=== PATIENT | male | born 1955 | race Caucasian/White ===

== ENCOUNTER 2017-12-23 13:38 | Emergency (ER) | payer MEDICARE ==
[~2017-12-23] VITALS: Ht 185.4 cm; Wt 118.6 kg
[~2017-12-23 13:38] MED LIST: DUO-KAPS1 CAP PO; FLOMAX 0.40.4 MG/CAP PO; GLUCOPHAGE500 MG/TAB PO; METFORMIN500 MG PO; NEURONTIN800 MG PO; OXYCODONE10 MG PO; OXYCONTIN 20MG20 MG PO
[2017-12-23 13:40] VITALS: TEMP 97.5
[2017-12-23 14:12] LABS: BASO # 0.1 (0.0-0.2); BASO % 0.7 % (0.0-2.0); EOS # 0.5 (0.0-0.7); EOS % 6.2 % (0-4.0); GRAN # 5.6 (1.4-6.5); GRAN % 64.4 % (42.2-75.2); HEMATOCRIT 38.3 % (42.0-52.0); HEMOGLOBIN 12.6 g/dl (13.5-18.0); LYMPH % 23.3 % (20.0-51.0); MEAN CELL VOLUME 84 fl (80.0-100.0); MEAN CORPUSCULAR HEMOGLOBIN 28 pg (27.0-31.0); MEAN CORPUSCULAR HGB CONC 33 g/dl (33.0-37.0); MONO # 0.4 (0.1-0.6); MONO % 4.9 % (1.7-9.3); PLATELET COUNT 212 K/mm3 (130-400); RED BLOOD COUNT 4.55 M/mm3 (4.20-5.60)
[2017-12-23] MEDS ORDERED: VASOTEC 5MG5 MG/TAB PO (14:20)
[2017-12-23] MEDS ORDERED: MEVACOR 20M20 MG/TAB PO (14:21)
[2017-12-23] MEDS ORDERED: K-DUR 10 MEQ T10 MEQ PO (14:21)
[2017-12-23] MEDS ORDERED: LASIX 40MG TABL40 MG PO (14:22)
[2017-12-23] MEDS ORDERED: ASPIRIN 81M81 MG/TA2 PO (14:22)
[2017-12-23] MEDS ORDERED: TOPROL XL 25MG25 MG PO (14:22)
[2017-12-23 14:26] LABS: ALBUMIN 3.9 gm/dL (3.5-5.0); BILIRUBIN,TOTAL 0.6 mg/dL (0.0-1.0); C-REACTIVE PROTEIN 1.6 mg/dL (0.0-0.9); CALCIUM 9.2 mg/dL (8.4-10.2); CREATININE, serum 0.82 mg/dL (0.66-1.25); POTASSIUM 3.8 mmol/L (3.4-5.0); TOTAL PROTEIN 8.2 gm/dL (6.4-8.2)
[2017-12-23 14:47] LABS: ERYTHROCYTE SEDIMENTATION RATE 16 mm/hr (0-30)
[2017-12-23 17:04] VITALS: BP 101/65; PULSE 73
== END 2017-12-23 17:06 | disposition home or self-care (01) ==
LOC: COL.ER 13:38
PROVIDERS: Emergency Medicine
DX: E11.621 Type 2 diabetes mellitus with foot ulcer (principal); Z79.84 Long term (current) use of oral hypoglycemic drugs; Z79.82 Long term (current) use of aspirin

== ENCOUNTER 2017-12-24 07:13 | Outpatient (RCR) | payer MEDICARE ==
[2017-12-24 07:37] VITALS: BP 114/60; PULSE 79; TEMP 98
== END 2017-12-24 08:49 | disposition home or self-care (01) ==
LOC: EUO 07:13
DX: S91.302A Unspecified open wound, left foot, initial encounter (principal)

== ENCOUNTER → 2017-12-24 | Outpatient (CLI) | payer MEDICARE ==
[~2017-12-24] MED LIST changes: +ASPIRIN 81M81 MG/TA2 PO; +K-DUR 10 MEQ T10 MEQ PO; +LASIX 40MG TABL40 MG PO; +MEVACOR 20M20 MG/TAB PO; +TOPROL XL 25MG25 MG PO; +VASOTEC 5MG5 MG/TAB PO
== END ==
LOC: ZCOL.LAB 14:09
DX: E11.621 Type 2 diabetes mellitus with foot ulcer (principal); L97.529 Non-pressure chronic ulcer of other part of left foot with unspecified severity

== ENCOUNTER → 2018-01-11 | Outpatient (CLI) | payer MEDICARE ==
[2018-01-11 16:37] LABS: TRICYCLIC ANTIDEPRESS URINE NEGATIVE
== END ==
LOC: COL.LAB 14:26
PROVIDERS: Family Medicine
DX: G89.29 Other chronic pain (principal); Z51.81 Encounter for therapeutic drug level monitoring

== ENCOUNTER 2018-02-07 18:53 | Emergency (ER) | payer MEDICARE ==
[~2018-02-07] VITALS: Ht 185.4 cm; Wt 118.2 kg
[2018-02-07 19:07] VITALS: TEMP 98.5
[2018-02-07 20:20] LABS: BASO % 0.4 % (0.0-2.0); EOS # 0.1 (0.0-0.7); EOS % 0.9 % (0-4.0); GRAN # 6.4 (1.4-6.5); GRAN % 69.6 % (42.2-75.2); HEMATOCRIT 37.9 % (42.0-52.0); HEMOGLOBIN 12.7 g/dl (13.5-18.0); LYMPH # 2.1 (1.2-3.4); LYMPH % 22.9 % (20.0-51.0); MEAN CELL VOLUME 82 fl (80.0-100.0); MEAN CORPUSCULAR HEMOGLOBIN 27 pg (27.0-31.0); MEAN CORPUSCULAR HGB CONC 34 g/dl (33.0-37.0); MEAN PLATELET VOLUME 10.4 fl (7.4-10.4); MONO # 0.5 (0.1-0.6); MONO % 5.8 % (1.7-9.3); PLATELET COUNT 232 K/mm3 (130-400); RED BLOOD COUNT 4.64 M/mm3 (4.20-5.60); REDCELL DISTRIBUTION WIDTH-CV 13.9 % (11.5-14.5)
[2018-02-07 20:38] LABS: ALANINE AMINOTRANSFERASE 22 U/L (21-72); ALBUMIN 4.3 gm/dL (3.5-5.0); ALKALINE PHOSPHATASE 71 U/L (50-136); ANION GAP 12 mmol/L (7-16); AST,SGOT 22 U/L (15-37); BILIRUBIN,TOTAL 0.5 mg/dL (0.0-1.0); BLOOD UREA NITROGEN 22 mg/dL (9-20); C-REACTIVE PROTEIN 2.9 mg/dL (0.0-0.9); CALCIUM 9.5 mg/dL (8.4-10.2); CARBON DIOXIDE 26 mmol/L (22-30); CHLORIDE 99 mmol/L (98-107); CREATININE, serum 0.99 mg/dL (0.66-1.25); GLUCOSE 160 mg/dL (74-106); LIPASE 73 U/L (23-300); POTASSIUM 4.1 mmol/L (3.4-5.0); SODIUM 137 mmol/L (137-145); TOTAL PROTEIN 8.2 gm/dL (6.4-8.2)
[2018-02-07 20:49] LABS: TROPONIN-I < 0.012 ng/mL (0.000-0.034)
[2018-02-07] MEDS ORDERED: ZITHROMAX 250M250 MG PO (22:11)
[2018-02-07 23:20] VITALS: BP 111/79; PULSE 102
== END 2018-02-07 23:25 | disposition home or self-care (01) ==
LOC: COL.ER 18:53
PROVIDERS: Emergency Medicine
DX: R07.89 Other chest pain (principal); J40 Bronchitis, not specified as acute or chronic; I10 Essential (primary) hypertension; E78.5 Hyperlipidemia, unspecified; E11.9 Type 2 diabetes mellitus without complications; I25.10 Atherosclerotic heart disease of native coronary artery without angina pectoris; Z98.890 Other specified postprocedural states; Z79.84 Long term (current) use of oral hypoglycemic drugs
CPT/HCPCS: J7030

== ENCOUNTER → 2018-03-02 | Outpatient (CLI) | payer MEDICARE ==
[~2018-03-02] MED LIST changes: +ZITHROMAX 250M250 MG PO
[2018-03-02 15:51] LABS: BASO # 0.1 (0.0-0.2); BASO % 0.7 % (0.0-2.0); EOS # 0.3 (0.0-0.7); EOS % 3.1 % (0-4.0); GRAN # 5.6 (1.4-6.5); GRAN % 62.9 % (42.2-75.2); HEMATOCRIT 40.5 % (42.0-52.0); HEMOGLOBIN 13.3 g/dl (13.5-18.0); LYMPH # 2.4 (1.2-3.4); LYMPH % 27.4 % (20.0-51.0); MEAN CELL VOLUME 85 fl (80.0-100.0); MEAN CORPUSCULAR HEMOGLOBIN 28 pg (27.0-31.0); MEAN CORPUSCULAR HGB CONC 33 g/dl (33.0-37.0); MONO # 0.5 (0.1-0.6); MONO % 5.6 % (1.7-9.3); PLATELET COUNT 255 K/mm3 (130-400); RED BLOOD COUNT 4.76 M/mm3 (4.20-5.60); REDCELL DISTRIBUTION WIDTH-CV 13.9 % (11.5-14.5)
[2018-03-02 16:00] LABS: ALBUMIN 4.3 gm/dL (3.5-5.0); BILIRUBIN,TOTAL 0.4 mg/dL (0.0-1.0); CALCIUM 9.4 mg/dL (8.4-10.2); CHOLESTEROL RISK RATIO 5.9; CREATININE, serum 0.81 mg/dL (0.66-1.25); POTASSIUM 4.7 mmol/L (3.4-5.0); TOTAL PROTEIN 8.6 gm/dL (6.4-8.2)
[2018-03-02 16:15] LABS: URINE PROTEIN:CREAT RATIO 0.2 (0.00-0.14)
[2018-03-02 16:30] LABS: TSH w REFLEX 1.17 uIU/mL (0.465-4.680)
== END ==
LOC: COL.LAB 13:42
PROVIDERS: Family Medicine
DX: I10 Essential (primary) hypertension (principal); E11.9 Type 2 diabetes mellitus without complications; E78.5 Hyperlipidemia, unspecified

== ENCOUNTER → 2018-03-03 | Outpatient (CLI) | payer MEDICARE | LOC: MHCPAIN 12:46 | DX: G89.29 Other chronic pain (principal); M79.1 Myalgia; M79.2 Neuralgia and neuritis, unspecified | CPT/HCPCS: G0463 ==

== ENCOUNTER → 2018-03-16 | Outpatient (CLI) | payer MEDICARE | LOC: COL.LAB 14:37 | DX: G62.9 Polyneuropathy, unspecified (principal) ==

== ENCOUNTER → 2018-03-31 | Outpatient (CLI) | payer MEDICARE | LOC: MHCPAIN 12:54 | DX: G89.29 Other chronic pain (principal); M79.2 Neuralgia and neuritis, unspecified; M79.1 Myalgia | CPT/HCPCS: G0463 ==

== ENCOUNTER 2018-04-29 16:16 | Emergency (ER) | payer MEDICARE ==
[~2018-04-29] VITALS: Ht 185.4 cm; Wt 119.1 kg
[2018-04-29 16:17] VITALS: BP 168/72; TEMP 97.7
[2018-04-29] MEDS ORDERED: ASPIRIN 32325 MG/TAB PO (16:30)
[2018-04-29] MEDS ORDERED: CLEOCIN HCL300 MG PO (17:16)
[2018-04-29 17:40] VITALS: PULSE 80
== END 2018-04-29 17:45 | disposition home or self-care (01) ==
LOC: COL.ER 16:16
DX: K02.9 Dental caries, unspecified (principal); E11.40 Type 2 diabetes mellitus with diabetic neuropathy, unspecified; Z79.84 Long term (current) use of oral hypoglycemic drugs; Z87.891 Personal history of nicotine dependence; Z95.1 Presence of aortocoronary bypass graft; Z90.89 Acquired absence of other organs
CPT/HCPCS: J1885

== ENCOUNTER → 2018-05-10 | Outpatient (CLI) | payer MEDICARE ==
[~2018-05-10] MED LIST changes: +ASPIRIN 32325 MG/TAB PO; +CLEOCIN HCL300 MG PO
[2018-05-10 14:52] LABS: BASO # 0.1 (0.0-0.2); BASO % 0.5 % (0.0-2.0); EOS # 0.2 (0.0-0.7); EOS % 1.6 % (0-4.0); GRAN # 6.3 (1.4-6.5); GRAN % 65.6 % (42.2-75.2); HEMATOCRIT 38.6 % (42.0-52.0); HEMOGLOBIN 12.8 g/dl (13.5-18.0); LYMPH # 2.5 (1.2-3.4); LYMPH % 25.9 % (20.0-51.0); MEAN CELL VOLUME 85 fl (80.0-100.0); MEAN CORPUSCULAR HEMOGLOBIN 28 pg (27.0-31.0); MEAN CORPUSCULAR HGB CONC 33 g/dl (33.0-37.0); MEAN PLATELET VOLUME 10.1 fl (7.4-10.4); MONO # 0.6 (0.1-0.6); MONO % 6.1 % (1.7-9.3); PLATELET COUNT 248 K/mm3 (130-400); RED BLOOD COUNT 4.55 M/mm3 (4.20-5.60); REDCELL DISTRIBUTION WIDTH-CV 13.7 % (11.5-14.5)
[2018-05-10 15:03] LABS: CALCIUM 9.6 mg/dL (8.4-10.2); CREATININE, serum 0.83 mg/dL (0.66-1.25); POTASSIUM 4.7 mmol/L (3.4-5.0)
== END ==
LOC: COL.LAB 14:26
PROVIDERS: Family Medicine
DX: Z01.812 Encounter for preprocedural laboratory examination (principal); I25.10 Atherosclerotic heart disease of native coronary artery without angina pectoris; K02.9 Dental caries, unspecified; E11.9 Type 2 diabetes mellitus without complications

== ENCOUNTER → 2018-06-23 | Outpatient (CLI) | payer MEDICARE | LOC: MHCPAIN 12:59 | DX: G89.29 Other chronic pain (principal); M79.2 Neuralgia and neuritis, unspecified | CPT/HCPCS: G0463 ==

== ENCOUNTER 2018-07-02 08:38 | Inpatient (IN) | payer MEDICARE ==
[~2018-07-02] VITALS: Ht 185.4 cm; Wt 117.9 kg
[~2018-07-02 08:38] MED LIST changes: -NEURONTIN800 MG PO; +NEURONTIN800 MG/TAB PO
[2018-07-07] VITALS (10 sets, daily range): BP systolic 91–129; BP diastolic 48–77; PULSE 64–89; TEMP 97.2–98.6
[2018-07-07] MEDS ORDERED: CLEOCIN HCL300 MG PO (07:42)
[2018-07-07] MEDS ORDERED: DAZIDOX10 MG PO (07:46)
[2018-07-07] MEDS ORDERED: DECADRON OPHTH D5 ML OT (07:48)
[2018-07-07] MEDS ORDERED: ATHLETE'S FOOT1% OT (07:50)
[2018-07-08 00:29] VITALS: BP 125/53; PULSE 75; TEMP 98.6
[2018-07-08 05:21] VITALS: BP 134/75; PULSE 87; TEMP 97.4
[2018-07-08 09:00] VITALS: BP 131/57; PULSE 92; TEMP 97.7
[2018-07-08 10:08] VITALS: BP 116/52; BP 131/57; PULSE 87; PULSE 92; TEMP 97.7; TEMP 97.8
[2018-07-08 12:56] VITALS: BP 109/54; PULSE 79; TEMP 97.7
== END 2018-07-08 16:10 | disposition home or self-care (01) | DRG 476 ==
LOC: SURG 07-07 06:42 → JCC 07-07 06:42 → SURG 07-07 11:00 → JCC 07-08 16:10
PROVIDERS: Orthopaedic Surgery
PROC: 0Y6N0ZF Detachment at Left Foot, Partial 5th Ray, Open Approach (ICD-10-PCS; principal; 2018-07-07 11:00)
DX: M86.8X7 Other osteomyelitis, ankle and foot (principal); I10 Essential (primary) hypertension; Z95.1 Presence of aortocoronary bypass graft; E11.40 Type 2 diabetes mellitus with diabetic neuropathy, unspecified; Z87.891 Personal history of nicotine dependence
CPT/HCPCS: J0690; J1650; J2250; J2270; J2405; J2704; J3010; J7030

== ENCOUNTER → 2018-08-23 | Outpatient (CLI) | payer MEDICARE ==
[~2018-08-23] MED LIST changes: +ATHLETE'S FOOT1% OT; +DAZIDOX10 MG PO; +DECADRON OPHTH D5 ML OT
== END ==
LOC: ZCOL.LAB 14:21
DX: E11.621 Type 2 diabetes mellitus with foot ulcer (principal)

== ENCOUNTER 2018-09-21 01:05 | Emergency (ER) | payer MEDICARE ==
[2018-09-21 01:08] VITALS: TEMP 98.1
[2018-09-21 01:38] LABS: BASO % 0.4 % (0.0-2.0); EOS % 0.3 % (0-4.0); GRAN # 7.9 (1.4-6.5); GRAN % 79.3 % (42.2-75.2); LYMPH # 1.1 (1.2-3.4); LYMPH % 10.7 % (20.0-51.0); MEAN CELL VOLUME 78 fl (80.0-100.0); MEAN CORPUSCULAR HGB CONC 31 g/dl (33.0-37.0); MONO # 0.9 (0.1-0.6); MONO % 8.9 % (1.7-9.3); PLATELET COUNT 322 K/mm3 (130-400); RED BLOOD COUNT 3.38 M/mm3 (4.20-5.60)
[2018-09-21 01:40] LABS: HEMATOCRIT 26.3 % (42.0-52.0); HEMOGLOBIN 8.2 g/dl (13.5-18.0); MEAN CORPUSCULAR HEMOGLOBIN 24 pg (27.0-31.0)
[2018-09-21 01:52] LABS: ALBUMIN 3.4 gm/dL (3.5-5.0); BILIRUBIN,TOTAL 0.6 mg/dL (0.0-1.0); CALCIUM 8.8 mg/dL (8.4-10.2); CREATININE, serum 0.72 mg/dL (0.66-1.25); POTASSIUM 4.1 mmol/L (3.4-5.0); TOTAL PROTEIN 7.9 gm/dL (6.4-8.2)
[2018-09-21 02:02] LABS: C-REACTIVE PROTEIN 21.2 mg/dL (0.0-0.9)
[2018-09-21 04:15] VITALS: BP 105/45; PULSE 106
== END 2018-09-21 04:15 | disposition short-term general hospital (02) ==
LOC: COL.ER 01:05
PROVIDERS: Emergency Medicine
DX: M86.9 Osteomyelitis, unspecified (principal); L03.116 Cellulitis of left lower limb; Z79.84 Long term (current) use of oral hypoglycemic drugs; Z79.82 Long term (current) use of aspirin
CPT/HCPCS: J2270; J3370; J7050

== ENCOUNTER → 2018-10-06 | Outpatient (CLI) | payer MEDICARE | LOC: ZCOL.LAB 21:50 | DX: J11.1 Influenza due to unidentified influenza virus with other respiratory manifestations (principal) ==

== ENCOUNTER → 2018-10-20 | Outpatient (CLI) | payer MEDICARE | LOC: MHCPAIN 13:02 | DX: G89.29 Other chronic pain (principal); M79.2 Neuralgia and neuritis, unspecified | CPT/HCPCS: G0463 ==

== ENCOUNTER 2018-12-15 12:01 | Emergency (ER) | payer MEDICARE ==
[~2018-12-15] VITALS: Ht 185.4 cm; Wt 118.2 kg
[2018-12-15 12:04] VITALS: TEMP 97.7
[2018-12-15 13:27] VITALS: PULSE 76
== END 2018-12-15 13:28 | disposition home or self-care (01) ==
LOC: COL.ER 12:01
DX: S89.92XA Unspecified injury of left lower leg, initial encounter (principal); I25.10 Atherosclerotic heart disease of native coronary artery without angina pectoris; E11.9 Type 2 diabetes mellitus without complications; Z95.1 Presence of aortocoronary bypass graft; Z87.891 Personal history of nicotine dependence; Z90.49 Acquired absence of other specified parts of digestive tract; Z79.84 Long term (current) use of oral hypoglycemic drugs; Z79.82 Long term (current) use of aspirin; W19.XXXA Unspecified fall, initial encounter

== ENCOUNTER → 2019-01-18 | Outpatient (CLI) | payer MEDICARE | LOC: MHCPAIN 12:44 | DX: G89.29 Other chronic pain (principal); M79.2 Neuralgia and neuritis, unspecified | CPT/HCPCS: G0463 ==

== ENCOUNTER → 2019-04-05 | Outpatient (CLI) | payer MEDICARE | LOC: MHCPAIN 12:49 | DX: G89.29 Other chronic pain (principal); M79.2 Neuralgia and neuritis, unspecified | CPT/HCPCS: G0463 ==

== ENCOUNTER → 2019-06-21 | Outpatient (CLI) | payer MEDICARE ==
[~2019-06-21] MED LIST changes: +ALBUTEROL0.83 MG/ML IH; +AMOXICILLIN875 MG PO; +LEVAQUIN 750MG750 M1 PO; +NEB MC; +NORCO 325 MG-51 TAB PO; +PREDNISONE20 MG PO
== END ==
LOC: MHCPAIN 12:57
DX: M79.2 Neuralgia and neuritis, unspecified (principal)
CPT/HCPCS: G0463

== ENCOUNTER 2019-07-04 10:40 | Emergency (ER) | payer MEDICARE ==
[~2019-07-04] VITALS: Ht 185.4 cm; Wt 122.7 kg
[~2019-07-04 10:40] MED LIST changes: -ALBUTEROL0.83 MG/ML IH; -AMOXICILLIN875 MG PO; -LEVAQUIN 750MG750 M1 PO; -NEB MC; -NORCO 325 MG-51 TAB PO; -PREDNISONE20 MG PO
[2019-07-04 11:06] VITALS: BP 154/73; TEMP 97.8
[2019-07-04] MEDS ORDERED: AMOXICILLIN875 MG PO (13:15)
[2019-07-04] MEDS ORDERED: NORCO 325 MG-51 TAB PO (13:15)
[2019-07-04 13:43] VITALS: PULSE 79
== END 2019-07-04 13:45 | disposition home or self-care (01) ==
LOC: COL.ER 10:40
DX: K02.9 Dental caries, unspecified (principal); K04.7 Periapical abscess without sinus; E11.40 Type 2 diabetes mellitus with diabetic neuropathy, unspecified; I10 Essential (primary) hypertension; Z87.891 Personal history of nicotine dependence; Z79.84 Long term (current) use of oral hypoglycemic drugs; Z79.82 Long term (current) use of aspirin
CPT/HCPCS: J1885

== ENCOUNTER 2019-08-21 21:27 | Emergency (ER) | payer MEDICARE ==
[~2019-08-21] VITALS: Ht 185.4 cm; Wt 122.7 kg
[~2019-08-21 21:27] MED LIST changes: +AMOXICILLIN875 MG PO; +NORCO 325 MG-51 TAB PO
[2019-08-21 23:46] LABS: BASO # 0.1 (0.0-0.2); BASO % 0.7 % (0.0-2.0); EOS # 0.3 (0.0-0.7); EOS % 3.8 % (0-4.0); GRAN # 2.9 (1.4-6.5); GRAN % 40.7 % (42.2-75.2); HEMATOCRIT 38.7 % (42.0-52.0); HEMOGLOBIN 12.9 g/dl (13.5-18.0); LYMPH % 41.8 % (20.0-51.0); MEAN CELL VOLUME 85 fl (80.0-100.0); MEAN CORPUSCULAR HEMOGLOBIN 28 pg (27.0-31.0); MEAN CORPUSCULAR HGB CONC 33 g/dl (33.0-37.0); MEAN PLATELET VOLUME 9.7 fl (7.4-10.4); MONO # 0.9 (0.1-0.6); MONO % 12.7 % (1.7-9.3); PLATELET COUNT 179 K/mm3 (130-400); RED BLOOD COUNT 4.55 M/mm3 (4.20-5.60); REDCELL DISTRIBUTION WIDTH-CV 13.7 % (11.5-14.5)
[2019-08-21 23:55] LABS: ALANINE AMINOTRANSFERASE 13 U/L (21-72); ALBUMIN 4.2 gm/dL (3.5-5.0); ALKALINE PHOSPHATASE 61 U/L (50-136); ANION GAP 7 mmol/L (7-16); AST,SGOT 21 U/L (15-37); BILIRUBIN,TOTAL 0.5 mg/dL (0.0-1.0); BLOOD UREA NITROGEN 15 mg/dL (9-20); CALCIUM 9.4 mg/dL (8.4-10.2); CARBON DIOXIDE 28 mmol/L (22-30); CHLORIDE 104 mmol/L (98-107); CREATININE, serum 0.72 (0.66-1.25); GLUCOSE 131 mg/dL (74-106); POTASSIUM 4.5 mmol/L (3.4-5.0); SODIUM 139 mmol/L (137-145)
[2019-08-22 00:09] LABS: TROPONIN-I < 0.012 ng/mL (0.000-0.035)
[2019-08-22] MEDS ORDERED: LEVAQUIN 750MG750 M1 PO (00:23)
[2019-08-22 00:30] VITALS: BP 123/58; PULSE 70; TEMP 97.7
== END 2019-08-22 00:36 | disposition home or self-care (01) ==
LOC: COL.ER 21:27
PROVIDERS: Emergency Medicine
DX: J18.9 Pneumonia, unspecified organism (principal); E11.40 Type 2 diabetes mellitus with diabetic neuropathy, unspecified; I10 Essential (primary) hypertension; I25.10 Atherosclerotic heart disease of native coronary artery without angina pectoris; Z87.891 Personal history of nicotine dependence; Z95.1 Presence of aortocoronary bypass graft; Z79.84 Long term (current) use of oral hypoglycemic drugs; Z79.82 Long term (current) use of aspirin

== ENCOUNTER 2019-08-26 15:10 | Emergency (ER) | payer MEDICARE ==
[~2019-08-26] VITALS: Ht 185.4 cm; Wt 122.7 kg
[~2019-08-26 15:10] MED LIST changes: +LEVAQUIN 750MG750 M1 PO
[2019-08-26 15:27] VITALS: TEMP 97.6
[2019-08-26 17:00] LABS: BASO # 0.1 (0.0-0.2); BASO % 0.6 % (0.0-2.0); EOS # 0.2 (0.0-0.7); EOS % 1.2 % (0-4.0); GRAN # 7.8 (1.4-6.5); GRAN % 63.6 % (42.2-75.2); HEMATOCRIT 41.6 % (42.0-52.0); HEMOGLOBIN 14.2 g/dl (13.5-18.0); LYMPH # 3.5 (1.2-3.4); LYMPH % 28.8 % (20.0-51.0); MEAN CELL VOLUME 83 fl (80.0-100.0); MEAN CORPUSCULAR HEMOGLOBIN 29 pg (27.0-31.0); MEAN CORPUSCULAR HGB CONC 34 g/dl (33.0-37.0); MEAN PLATELET VOLUME 9.9 fl (7.4-10.4); MONO # 0.6 (0.1-0.6); MONO % 5.3 % (1.7-9.3); PLATELET COUNT 245 K/mm3 (130-400); RED BLOOD COUNT 4.99 M/mm3 (4.20-5.60); REDCELL DISTRIBUTION WIDTH-CV 13.8 % (11.5-14.5)
[2019-08-26 17:30] LABS: ALBUMIN 4.6 gm/dL (3.5-5.0); BILIRUBIN,TOTAL 0.6 mg/dL (0.0-1.0); C-REACTIVE PROTEIN 0.6 mg/dL (0.0-0.9); CALCIUM 9.7 mg/dL (8.4-10.2); CREATININE, serum 0.7 (0.66-1.25); POTASSIUM 4.4 mmol/L (3.4-5.0); TOTAL PROTEIN 8.8 gm/dL (6.4-8.2)
[2019-08-26] MEDS ORDERED: NEB MC (18:12)
[2019-08-26] MEDS ORDERED: ALBUTEROL0.83 MG/ML IH (18:12)
[2019-08-26] MEDS ORDERED: PREDNISONE20 MG PO (18:15)
[2019-08-26 18:48] VITALS: BP 136/84; PULSE 93
== END 2019-08-26 18:58 | disposition home or self-care (01) ==
LOC: COL.ER 15:10
PROVIDERS: Physician Assistant
DX: J18.9 Pneumonia, unspecified organism (principal); J06.9 Acute upper respiratory infection, unspecified; J45.909 Unspecified asthma, uncomplicated; E11.9 Type 2 diabetes mellitus without complications; Z79.84 Long term (current) use of oral hypoglycemic drugs; Z79.82 Long term (current) use of aspirin; Z88.1 Allergy status to other antibiotic agents; Z88.8 Allergy status to other drugs, medicaments and biological substances
CPT/HCPCS: J7030

== ENCOUNTER → 2019-12-28 | Outpatient (CLI) | payer MEDICARE, OTHER ==
[~2019-12-28] MED LIST changes: +ALBUTEROL0.83 MG/ML IH; +NEB MC; +PREDNISONE20 MG PO
== END ==
LOC: MHCPAIN 13:20
DX: M79.2 Neuralgia and neuritis, unspecified (principal); G89.29 Other chronic pain
CPT/HCPCS: G0463

== ENCOUNTER 2019-12-31 23:20 | Emergency (ER) | payer MEDICARE, OTHER ==
[~2019-12-31] VITALS: Ht 182.9 cm; Wt 121.4 kg
[2019-12-31 23:28] VITALS: BP 167/98
[2019-12-31] MEDS ORDERED: AMOXICILLIN 50500 MG PO (23:55)
[2020-01-01 00:13] VITALS: PULSE 68; TEMP 98
== END 2020-01-01 00:10 | disposition home or self-care (01) ==
LOC: COL.ER 23:20
DX: K02.9 Dental caries, unspecified (principal); E11.42 Type 2 diabetes mellitus with diabetic polyneuropathy; Z87.891 Personal history of nicotine dependence; Z79.82 Long term (current) use of aspirin; Z79.84 Long term (current) use of oral hypoglycemic drugs

== ENCOUNTER → 2020-03-28 | Outpatient (CLI) | payer MEDICARE, OTHER ==
[~2020-03-28] MED LIST changes: +AMOXICILLIN 50500 MG PO
== END ==
LOC: MHCPAIN 11:06
DX: M79.2 Neuralgia and neuritis, unspecified (principal); E11.40 Type 2 diabetes mellitus with diabetic neuropathy, unspecified; M79.604 Pain in right leg; M79.605 Pain in left leg; G89.29 Other chronic pain
CPT/HCPCS: G0463

== ENCOUNTER 2020-04-09 13:00 | Outpatient (RCR) | payer MEDICARE, OTHER | END 2020-04-09 15:00 | disposition home or self-care (01) | LOC: MKS.ESL.PT 13:00 | DX: S88.912S Complete traumatic amputation of left lower leg, level unspecified, sequela (principal) ==

== ENCOUNTER 2020-04-18 10:00 | Day surgery (SDC) | payer MEDICARE, OTHER ==
[2020-04-18] VITALS (9 sets, daily range): BP systolic 121–147; BP diastolic 70–92; PULSE 69–77; TEMP 97.6
[~2020-04-18] VITALS: Ht 183 cm; Wt 122.0 kg
[2020-04-18] MEDS ORDERED: VOSOL 15 ML15 M1 OT (10:56)
[2020-04-18 11:10] LABS: HEMATOCRIT 42.4 % (42.0-52.0); HEMOGLOBIN 14.4 g/dl (13.5-18.0); MEAN CELL VOLUME 86 fl (80.0-100.0); MEAN CORPUSCULAR HEMOGLOBIN 29 pg (27.0-31.0); MEAN CORPUSCULAR HGB CONC 34 g/dl (33.0-37.0); MEAN PLATELET VOLUME 10.3 fl (7.4-10.4); PLATELET COUNT 230 K/mm3 (130-400); RED BLOOD COUNT 4.92 M/mm3 (4.20-5.60); REDCELL DISTRIBUTION WIDTH-CV 13.8 % (11.5-14.5)
[2020-04-18 11:13] LABS: PROTHROMBIN TIME 10.6 SECONDS (9.7-12.8)
[2020-04-18 11:16] LABS: PARTIAL THROMBOPLASTIN TIME 31.6 SECONDS (26.0-37.0)
[2020-04-18 11:24] LABS: CALCIUM 9.4 mg/dL (8.4-10.2); CREATININE, serum 0.86 (0.66-1.25); POTASSIUM 4.3 mmol/L (3.4-5.0)
--- NOTE | 2020-04-18 12:24 | NUR ---
SEE MERGE DOCUMENTATION FOR MEDICATION ADMINISRATION TIMES AND INTRA/POST PROCEDURE SEDATION ASSESSMENTS. PLAN FOR LEFT RADIAL ACCESS, LEFT HAND BARBEAU TEST POSITIVE.
--- NOTE | 2020-04-18 13:40 | NUR ---
PT TO EU 10 VIA BED FROM [facility] LEAD PSYCHOLOGIST. PT IS AWAKE AND ALERT. CALL LIGHT IN REACH, PT ON TELEMETRY. STATES IS HUNGRY AND THIRSTY, NO OTHER C/O
--- NOTE | 2020-04-18 14:25 | NUR ---
PT SITS UP IN BED, DAUGHTER HERE. EATS LUNCH, NO C/O
--- NOTE | 2020-04-18 15:40 | NUR ---
TR BAND RELEASED BY 2CC EVERY 3-5 MIN, NO BLEEDING OR SWELLING NOTED, BAND REMOVED WITH BANDAID/COBAN PLACED. PT SITS ON SIDE OF BED, NO C/O. IV D'CD INTACT. REVIEWED DISCHARGE INST. WITH PT ON ACTIVITY, CARE OF SITE, LIFTING RESTRICTIONS WITH VERBAL UNDERSTANDING. PT HAS FOLLOWUP APPT. AND INSTRUCTED NOT TO TAKE METFORMIN FOR 48 HRS WRITTEN.
--- NOTE | 2020-04-18 16:16 | NUR ---
PT DISCHARGED VIA W/C TO CAR WITH DAUGHTER
== END 2020-04-18 16:24 | disposition home or self-care (01) ==
LOC: COL.CAR 10:00
PROVIDERS: Internal Medicine Cardiovascular Disease
DX: I25.10 Atherosclerotic heart disease of native coronary artery without angina pectoris (principal); I25.2 Old myocardial infarction; R06.02 Shortness of breath; I10 Essential (primary) hypertension; E11.42 Type 2 diabetes mellitus with diabetic polyneuropathy; G47.33 Obstructive sleep apnea (adult) (pediatric); E78.5 Hyperlipidemia, unspecified; I73.9 Peripheral vascular disease, unspecified; K21.9 Gastro-esophageal reflux disease without esophagitis; N40.0 Benign prostatic hyperplasia without lower urinary tract symptoms; I45.10 Unspecified right bundle-branch block; G89.29 Other chronic pain; J45.909 Unspecified asthma, uncomplicated; L71.9 Rosacea, unspecified; E66.9 Obesity, unspecified; Z68.37 Body mass index [BMI] 37.0-37.9, adult; Z86.19 Personal history of other infectious and parasitic diseases; Z95.1 Presence of aortocoronary bypass graft; Z79.84 Long term (current) use of oral hypoglycemic drugs; Z89.512 Acquired absence of left leg below knee; Z88.8 Allergy status to other drugs, medicaments and biological substances
CPT/HCPCS: J1644; J2250; J3010

== ENCOUNTER 2020-07-01 22:22 | Emergency (ER) | payer MEDICARE, OTHER ==
[~2020-07-01] VITALS: Ht 185.4 cm; Wt 122.7 kg
[~2020-07-01 22:22] MED LIST changes: +VOSOL 15 ML15 M1 OT
[2020-07-01 22:58] VITALS: BP 135/76; PULSE 78
== END 2020-07-01 22:58 | disposition home or self-care (01) ==
LOC: COL.ER 22:22
DX: Z48.89 Encounter for other specified surgical aftercare (principal)

== ENCOUNTER 2020-08-03 11:38 | Emergency (ER) | payer MEDICARE, OTHER ==
[~2020-08-03] VITALS: Ht 185.4 cm; Wt 121.8 kg
[2020-08-03 11:44] VITALS: TEMP 97.5
[2020-08-03] MEDS ORDERED: MOBIC15 MG PO (14:26)
[2020-08-03] MEDS ORDERED: ZANAFLEX 4MG TAB4 MG PO (14:26)
[2020-08-03] MEDS ORDERED: PERCOCET 325 MG1 TA2 PO (14:26)
[2020-08-03 14:40] VITALS: BP 136/83; PULSE 84
== END 2020-08-03 14:40 | disposition home or self-care (01) ==
LOC: COL.ER 11:38
DX: M48.02 Spinal stenosis, cervical region (principal); M47.812 Spondylosis without myelopathy or radiculopathy, cervical region; I10 Essential (primary) hypertension; E11.9 Type 2 diabetes mellitus without complications; Z95.9 Presence of cardiac and vascular implant and graft, unspecified; Z88.1 Allergy status to other antibiotic agents; Z87.891 Personal history of nicotine dependence; Z79.82 Long term (current) use of aspirin; Z79.84 Long term (current) use of oral hypoglycemic drugs

== ENCOUNTER 2020-08-11 09:18 | Emergency (ER) | payer MEDICARE, OTHER ==
[~2020-08-11] VITALS: Ht 185.4 cm; Wt 76.4 kg
[~2020-08-11 09:18] MED LIST changes: +MOBIC15 MG PO; +PERCOCET 325 MG1 TA2 PO; +ZANAFLEX 4MG TAB4 MG PO
[2020-08-11 09:24] VITALS: TEMP 97.3
[2020-08-11 10:04] LABS: BASO % 0.6 % (0.0-2.0); EOS # 0.2 (0.0-0.7); EOS % 2.9 % (0-4.0); GRAN # 2.6 (1.4-6.5); GRAN % 49.4 % (42.2-75.2); HEMATOCRIT 41.7 % (42.0-52.0); HEMOGLOBIN 13.8 g/dl (13.5-18.0); LYMPH # 1.9 (1.2-3.4); LYMPH % 36.9 % (20.0-51.0); MEAN CELL VOLUME 86 fl (80.0-100.0); MEAN CORPUSCULAR HEMOGLOBIN 29 pg (27.0-31.0); MEAN CORPUSCULAR HGB CONC 33 g/dl (33.0-37.0); MEAN PLATELET VOLUME 10.7 fl (7.4-10.4); MONO # 0.5 (0.1-0.6); PLATELET COUNT 178 K/mm3 (130-400); RED BLOOD COUNT 4.84 M/mm3 (4.20-5.60); REDCELL DISTRIBUTION WIDTH-CV 13.7 % (11.5-14.5)
[2020-08-11 10:20] LABS: ALBUMIN 4.3 gm/dL (3.5-5.0); ANION GAP 12 mmol/L (7-16); BLOOD UREA NITROGEN 14 mg/dL (9-20); CALCIUM 8.9 mg/dL (8.4-10.2); CARBON DIOXIDE 24 mmol/L (22-30); CHLORIDE 101 mmol/L (98-107); CREATININE, serum 0.79 (0.66-1.25); GLUCOSE 212 mg/dL (74-106); POTASSIUM 4.5 mmol/L (3.4-5.0); SODIUM 137 mmol/L (137-145); TOTAL PROTEIN 8.1 gm/dL (6.4-8.2)
[2020-08-11 10:31] LABS: TROPONIN-I < 0.012 ng/mL (0.000-0.035)
[2020-08-11 10:40] LABS: ALANINE AMINOTRANSFERASE 22 U/L (4-49); ALKALINE PHOSPHATASE 60 U/L (50-136); AST,SGOT 31 U/L (15-37); BILIRUBIN,TOTAL 0.4 mg/dL (0.0-1.0)
[2020-08-11 14:30] VITALS: BP 128/78; PULSE 78
== END 2020-08-11 14:30 | disposition home or self-care (01) ==
LOC: COL.ER 09:18
PROVIDERS: Family Medicine
DX: U07.1 COVID-19 (principal); R55 Syncope and collapse; I25.2 Old myocardial infarction; Z87.891 Personal history of nicotine dependence; Z90.89 Acquired absence of other organs; Z89.512 Acquired absence of left leg below knee; Z95.1 Presence of aortocoronary bypass graft; Z96.0 Presence of urogenital implants; Z88.1 Allergy status to other antibiotic agents; Z88.8 Allergy status to other drugs, medicaments and biological substances; Z79.82 Long term (current) use of aspirin; Z79.84 Long term (current) use of oral hypoglycemic drugs
CPT/HCPCS: J7050

== ENCOUNTER 2020-10-11 20:13 | Emergency (ER) | payer MEDICARE, OTHER ==
[~2020-10-11] VITALS: Ht 185.4 cm; Wt 121.4 kg
[2020-10-11 20:16] VITALS: BP 109/74; TEMP 98.8
[2020-10-11 21:13] VITALS: PULSE 94
== END 2020-10-11 21:13 | disposition home or self-care (01) ==
LOC: COL.ER 20:13
DX: S20.212A Contusion of left front wall of thorax, initial encounter (principal); I10 Essential (primary) hypertension; E11.40 Type 2 diabetes mellitus with diabetic neuropathy, unspecified; Z95.9 Presence of cardiac and vascular implant and graft, unspecified; Z88.1 Allergy status to other antibiotic agents; Z87.891 Personal history of nicotine dependence; Z79.84 Long term (current) use of oral hypoglycemic drugs; Z79.82 Long term (current) use of aspirin; W01.198A Fall on same level from slipping, tripping and stumbling with subsequent striking against other object, initial encounter

== ENCOUNTER 2021-04-04 06:17 | Emergency (ER) | payer MEDICARE, OTHER ==
[~2021-04-04] VITALS: Ht 185.4 cm; Wt 122.7 kg
[2021-04-04 06:27] VITALS: BP 125/60; PULSE 80; TEMP 97.4
[2021-04-04] MEDS ORDERED: DAZIDOX10 MG PO (06:36)
== END 2021-04-04 07:05 | disposition home or self-care (01) ==
LOC: COL.ER 06:17
DX: G54.6 Phantom limb syndrome with pain (principal); I10 Essential (primary) hypertension; E11.42 Type 2 diabetes mellitus with diabetic polyneuropathy; Z89.512 Acquired absence of left leg below knee; Z79.84 Long term (current) use of oral hypoglycemic drugs; Z79.899 Other long term (current) drug therapy

== ENCOUNTER 2021-04-04 21:12 | Emergency (ER) | payer MEDICARE, OTHER ==
[~2021-04-04] VITALS: Ht 185.4 cm; Wt 123.6 kg
[2021-04-04 22:03] LABS: BASO # 0.1 (0.0-0.2); BASO % 0.9 % (0.0-2.0); EOS # 0.3 (0.0-0.7); EOS % 3.3 % (0-4.0); GRAN # 3.8 (1.4-6.5); HEMATOCRIT 37.8 % (42.0-52.0); LYMPH # 2.9 (1.2-3.4); LYMPH % 38.3 % (20.0-51.0); MEAN CELL VOLUME 85 fl (80.0-100.0); MEAN CORPUSCULAR HEMOGLOBIN 29 pg (27.0-31.0); MEAN CORPUSCULAR HGB CONC 34 g/dl (33.0-37.0); MEAN PLATELET VOLUME 9.9 fl (7.4-10.4); MONO # 0.5 (0.1-0.6); MONO % 7.1 % (1.7-9.3); PLATELET COUNT 203 K/mm3 (130-400); RED BLOOD COUNT 4.46 M/mm3 (4.20-5.60); REDCELL DISTRIBUTION WIDTH-CV 13.7 % (11.5-14.5)
[2021-04-04 22:16] LABS: PROTHROMBIN TIME 11.4 SECONDS (9.7-12.8)
[2021-04-04 22:32] LABS: ALBUMIN 3.6 gm/dL (3.4-4.8); BILIRUBIN,TOTAL 0.3 mg/dL (0.2-1.2); C-REACTIVE PROTEIN 0.9 mg/dL (0.00-0.50); CALCIUM 9.8 mg/dL (8.4-10.2); CREATININE, serum 0.99 mg/dL (0.72-1.25); TOTAL PROTEIN 7.6 gm/dL (6.2-8.1)
[2021-04-04 23:04] VITALS: BP 110/68; PULSE 79; TEMP 98.4
== END 2021-04-04 23:04 | disposition home or self-care (01) ==
LOC: COL.ER 21:12
PROVIDERS: Nurse Practitioner
DX: R51.9 Headache, unspecified (principal); E87.5 Hyperkalemia; G54.6 Phantom limb syndrome with pain; I10 Essential (primary) hypertension; E11.40 Type 2 diabetes mellitus with diabetic neuropathy, unspecified; Z79.84 Long term (current) use of oral hypoglycemic drugs; Z79.899 Other long term (current) drug therapy
CPT/HCPCS: J3360

== ENCOUNTER 2021-05-25 21:43 | Emergency (ER) | payer MEDICARE, OTHER ==
[2021-05-25 22:24] VITALS: TEMP 97.7
[2021-05-25 22:58] LABS: BASO # 0.1 K/mm3 (0.0-0.2); BASO % 0.8 % (0.0-2.0); EOS # 0.2 K/mm3 (0.0-0.7); EOS % 2.9 % (0-4.0); GRAN # 3.9 K/mm3 (1.4-6.5); GRAN % 53.3 % (42.2-75.2); HEMOGLOBIN 12.5 g/dl (13.5-18.0); LYMPH # 2.6 K/mm3 (1.2-3.4); LYMPH % 35.8 % (20.0-51.0); MEAN CELL VOLUME 83 fl (80.0-100.0); MEAN CORPUSCULAR HEMOGLOBIN 29 pg (27.0-31.0); MEAN CORPUSCULAR HGB CONC 35 g/dl (33.0-37.0); MEAN PLATELET VOLUME 10.1 fl (7.4-10.4); MONO # 0.5 K/mm3 (0.1-0.6); MONO % 7.1 % (1.7-9.3); PLATELET COUNT 175 K/mm3 (130-400); RED BLOOD COUNT 4.28 M/mm3 (4.20-5.60); REDCELL DISTRIBUTION WIDTH-CV 13.2 % (11.5-14.5)
[2021-05-25 23:10] LABS: HEMATOCRIT 35.7 % (42.0-52.0)
[2021-05-25 23:34] LABS: ALANINE AMINOTRANSFERASE 14 U/L (0-55); ALBUMIN 3.5 gm/dL (3.4-4.8); ALKALINE PHOSPHATASE 55 U/L (40-150); ANION GAP 11 mmol/L (7-16); AST,SGOT 16 U/L (5-34); BILIRUBIN,TOTAL 0.4 mg/dL (0.2-1.2); BLOOD UREA NITROGEN 17 mg/dL (8-26); CALCIUM 8.6 mg/dL (8.4-10.2); CARBON DIOXIDE 21 mmol/L (23-31); CHLORIDE 104 mmol/L (98-107); CREATININE, serum 0.82 mg/dL (0.72-1.25); GLUCOSE 157 mg/dL (70-99); SODIUM 136 mmol/L (136-145)
[2021-05-25 23:42] LABS: TROPONIN-I < 0.010 ng/mL (0.00-0.033)
[2021-05-26 00:43] VITALS: BP 141/67; PULSE 66
== END 2021-05-26 00:43 | disposition home or self-care (01) ==
LOC: COL.ER 21:43
PROVIDERS: Physician Assistant
DX: D64.9 Anemia, unspecified (principal); M25.522 Pain in left elbow; R55 Syncope and collapse; T46.3X5A Adverse effect of coronary vasodilators, initial encounter; E11.9 Type 2 diabetes mellitus without complications; I25.10 Atherosclerotic heart disease of native coronary artery without angina pectoris; Z79.84 Long term (current) use of oral hypoglycemic drugs; Z79.82 Long term (current) use of aspirin

== ENCOUNTER 2021-07-28 15:50 | Emergency (ER) | payer MEDICARE, OTHER ==
[~2021-07-28] VITALS: Ht 185.4 cm; Wt 77.3 kg
[2021-07-28 16:50] VITALS: BP 159/74; TEMP 97.9
[2021-07-28 18:27] VITALS: PULSE 83
== END 2021-07-28 18:27 | disposition home or self-care (01) ==
LOC: COL.ER 15:50
DX: H61.22 Impacted cerumen, left ear (principal); I25.2 Old myocardial infarction; Z87.891 Personal history of nicotine dependence; Z79.82 Long term (current) use of aspirin

== ENCOUNTER 2021-09-14 10:47 | Emergency (ER) | payer MEDICARE, OTHER ==
[~2021-09-14] VITALS: Ht 185.4 cm; Wt 121.4 kg
[2021-09-14 11:25] VITALS: TEMP 98
[2021-09-14 13:31] LABS: BASO % 0.4 % (0.0-2.0); EOS # 0.2 K/mm3 (0.0-0.7); EOS % 1.5 % (0.0-4.0); GRAN # 6.7 K/mm3 (1.4-6.5); GRAN % 65.3 % (42.2-75.2); HEMATOCRIT 38.1 % (42.0-52.0); HEMOGLOBIN 12.9 g/dl (13.5-18.0); LYMPH # 2.6 K/mm3 (1.2-3.4); LYMPH % 25.3 % (20.0-51.0); MEAN CELL VOLUME 86 fl (80.0-100.0); MEAN CORPUSCULAR HEMOGLOBIN 29 pg (27-31); MEAN CORPUSCULAR HGB CONC 34 g/dl (33.0-37.0); MEAN PLATELET VOLUME 9.9 fl (7.4-10.4); MONO # 0.7 K/mm3 (0.1-0.6); MONO % 7.1 % (1.7-9.3); PLATELET COUNT 244 K/mm3 (130-400); RED BLOOD COUNT 4.43 M/mm3 (4.20-5.60); REDCELL DISTRIBUTION WIDTH-CV 13.4 % (11.5-14.5)
[2021-09-14 13:47] LABS: ALBUMIN 3.4 gm/dL (3.4-4.8); BILIRUBIN,TOTAL 0.3 mg/dL (0.2-1.2); CREATININE, serum 0.84 mg/dL (0.72-1.25); POTASSIUM 4.2 mmol/L (3.5-4.5); TOTAL PROTEIN 7.4 gm/dL (6.2-8.1)
[2021-09-14 17:59] VITALS: BP 139/79; PULSE 69
== END 2021-09-14 17:55 | disposition left against medical advice (07) ==
LOC: COL.ER 10:47
PROVIDERS: Student in an Organized Health Care Education/Training Program
DX: L03.031 Cellulitis of right toe (principal); Z20.822 Contact with and (suspected) exposure to COVID-19
CPT/HCPCS: J3370; J7040

== ENCOUNTER 2022-05-19 14:43 | Emergency (ER) | payer MEDICARE, OTHER ==
[~2022-05-19] VITALS: Ht 182.9 cm; Wt 118.2 kg
[2022-05-19 14:56] VITALS: TEMP 97.8
[2022-05-19 17:04] LABS: BASO # 0.1 K/mm3 (0.0-0.2); BASO % 0.9 % (0.0-2.0); EOS # 0.2 K/mm3 (0.0-0.7); EOS % 2.4 % (0.0-4.0); GRAN # 4.8 K/mm3 (1.4-6.5); GRAN % 63.6 % (42.2-75.2); HEMATOCRIT 40.6 % (42.0-52.0); HEMOGLOBIN 13.5 g/dl (13.5-18.0); LYMPH % 26.1 % (20.0-51.0); MEAN CELL VOLUME 88 fl (80.0-100.0); MEAN CORPUSCULAR HEMOGLOBIN 29 pg (27-31); MEAN CORPUSCULAR HGB CONC 33 g/dl (33.0-37.0); MONO # 0.5 K/mm3 (0.1-0.6); MONO % 6.6 % (1.7-9.3); PLATELET COUNT 237 K/mm3 (130-400); RED BLOOD COUNT 4.63 M/mm3 (4.20-5.60); REDCELL DISTRIBUTION WIDTH-CV 13.5 % (11.5-14.5)
[2022-05-19 17:22] LABS: ALBUMIN 3.6 gm/dL (3.4-4.8); BILIRUBIN,TOTAL 0.3 mg/dL (0.2-1.2); C-REACTIVE PROTEIN 0.79 mg/dL (0.00-0.50); CREATININE, serum 0.8 mg/dL (0.72-1.25); POTASSIUM 4.8 mmol/L (3.5-4.5); TOTAL PROTEIN 7.7 gm/dL (6.2-8.1)
[2022-05-19] MEDS ORDERED: ROXICODONE 55 MG/TAB PO (17:45)
[2022-05-19 18:06] VITALS: BP 150/81; PULSE 70
== END 2022-05-19 18:06 | disposition home or self-care (01) ==
LOC: COL.ER 14:43
PROVIDERS: Nurse Practitioner
DX: M10.071 Idiopathic gout, right ankle and foot (principal); Z89.512 Acquired absence of left leg below knee

== ENCOUNTER 2022-10-09 13:45 | Outpatient (RCR) | payer MEDICARE, OTHER ==
[~2022-10-09 13:45] MED LIST changes: +ROXICODONE 55 MG/TAB PO
== END 2022-10-10 | disposition home or self-care (01) ==
LOC: MKS.ESL.PT
DX: E11.42 Type 2 diabetes mellitus with diabetic polyneuropathy (principal); M19.071 Primary osteoarthritis, right ankle and foot; M76.61 Achilles tendinitis, right leg

== ENCOUNTER 2022-10-30 14:30 | Outpatient (RCR) | payer MEDICARE, OTHER | END 2022-11-09 | disposition home or self-care (01) | LOC: MKS.ESL.PT | DX: E11.42 Type 2 diabetes mellitus with diabetic polyneuropathy (principal); M76.61 Achilles tendinitis, right leg; M19.071 Primary osteoarthritis, right ankle and foot | CPT/HCPCS: G0283-GP ==

== ENCOUNTER 2023-10-28 09:31 | Inpatient (IN) | payer MEDICARE, OTHER ==
[~2023-10-28] VITALS: Ht 182.9 cm; Wt 116.0 kg
[~2023-10-28 09:31] MED LIST changes: +ASPI325T6 PO; +COZAAR 25MG25 MG/TAB PO; +DOXYCYCLINE 10100 MG PO; +FLOMAX 0.40.4 MG/CAP; +GLUCOPHAGE XR500 M1 PO; +GLUCOPHAGE1000 MG PO; +K-TAB10 PO; +KLOR-CON SPRIN10 MEQ PO; +LASIX 20MG TABL20 MG PO; +LOPRESSOR 225 MG/TAB PO; +MEVACOR40 MG PO; +PLAVIX 75MG TAB75 MG PO; +VENTOLIN0.09 MG IH; +ZYLOPRIM 100MG100 MG PO
[2023-10-28] MEDS ORDERED: Sennosides/Docusate 8.6-50 MG TAB PO PRN (13:30)
[2023-10-28] MEDS ORDERED: Polyethylene Glycol 3350 17 GM PDS PO PRN (13:30)
[2023-10-28] MEDS ORDERED: Acetaminophen 325 MG TAB PO PRN (13:30)
[2023-10-28] MEDS ORDERED: Naloxone 0.4 MG/ML VIAL IV PRN (13:30)
[2023-10-28] MEDS ORDERED: Docusate Sodium 100 MG CAP PO PRN (13:30)
[2023-10-28] MEDS ORDERED: Albuterol 0.083% Neb Soln 2.5 MG/3 ML UD IH PRN (14:00)
--- NOTE | 2023-10-28 14:02 | NUR ---
New pt transferred to unit from Surgical Floor. Pt ambulated from surgical room to room on IPR. Pt has hx of L BKA w/ prosthetic. Gait steady w/ FWW. Pt is a/o x 4, pleasant. Pt is s/p R TKA on 10/25 w/ Dr. Dunlap. Gauze & silk tape dressing noted to R knee. Dressing is CDI. All other skin intact. Pt denies valuable items that need to be locked in the safe. Orientation provided to room/unit. Pt had no questions. Pt assisted to recliner at his request. Reports receiving pain medication a few hours ago & denies the need for pain intervention at this time. Call light in reach. Chair alarm in place.
[2023-10-28] MEDS ORDERED: oxyCODONE 5 MG TAB PO PRN (14:15)
--- NOTE | 2023-10-28 14:35 | NUR ---
Called placed to Dr. Dunlap's office for clarification. Per RN, okay to shower but keep incision covered & dry. No soaking in tub. May shower normally on POD#5. Staple removal in 3 weeks. F/U 1 week after IPR DC. Leave surgical dressing in place until POD#5, then may leave INSPECTOR MULTIFOCAL LENS if no drainage. Okay to keep covered to protect robbie.
[2023-10-28] MEDS ORDERED: Gabapentin 400 MG CAP PO SCH (17:00)
[2023-10-28] MEDS ORDERED: Losartan 25 MG TAB PO SCH (18:00)
[2023-10-28] MEDS ORDERED: [UNRECOGNIZED DRUG - REMARK] PO SCH (21:00)
[2023-10-28] MEDS ORDERED: metFORMIN XR 500 MG TAB PO SCH (21:00)
[2023-10-28] MEDS ORDERED: Atorvastatin 20 MG TAB PO SCH (21:00)
[2023-10-28] MEDS ORDERED: Metoprolol Tartrate 25 MG TAB PO SCH (21:00)
--- NOTE | 2023-10-28 21:00 | NUR ---
PT A&O X4 LAYING IN BED. DRSG TO RT KNEE CDI. PT RATING PAIN 5/10, GAVE PRN OXYCODONE PER PT REQUEST. TINO TO RLE. PT DENYING OTHER NEEDS. CALL LIGHT IN REACH
--- NOTE | 2023-10-29 05:10 | NUR ---
GAVE PRN OXYCODONE PER PT REQUEST FOR RT KNEE PAIN 11/19. PT DENYING OTHER NEEDS THIS MORNING. CALL LIGHT IN REACH
[2023-10-29 05:44] VITALS: BP 138/73; PULSE 78; TEMP 98.7
[2023-10-29] MEDS ORDERED: Rivaroxaban 10 MG TAB PO SCH (06:00)
[2023-10-29 07:00] VITALS: BP_SYST 138
[2023-10-29] MEDS ORDERED: Clopidogrel 75 MG TAB PO SCH (09:00)
--- NOTE | 2023-10-29 09:44 | NUR ---
PT OUT TO THERAPY WITH THERAPISTS. PT AMBULATING WITH THERAPY USING CRUTCHES.
[2023-10-29] MEDS ORDERED: oxyCODONE 5 MG TAB PO PRN (10:00)
[2023-10-29] MEDS ORDERED: Furosemide 20 MG TAB PO SCH (12:00)
[2023-10-29] MEDS ORDERED: Multivitamin TAB PO ONE (14:30)
--- NOTE | 2023-10-29 15:52 | NUR ---
Prep Cook met with patient to complete initial intake. Patient's daughter, Haydee (ph#[phone]) is at bedside. Patient lives in [place] with his "landlady" Niurka Farrell. Patient was seeing Dr. Mcbride at [facility] and isn't sure who he will be assigned to now that she has left the practice. Patient has a walker, cane, and crutches available at home. Patient also provided phone number to his son, AMBER (ph#[phone]).
[2023-10-29] MEDS ORDERED: Bisacodyl 5 MG TAB PO PRN (16:30)
[2023-10-29 17:18] VITALS: BP 117/64; PULSE 93; TEMP 98.2
--- NOTE | 2023-10-29 18:53 | NUR ---
RECEIVED CHANGE OF SHIFT REPORT FROM DAY SHIFT NURSE. PATIENT RESTING IN BED, EATING SUPPER, NO NEEDS REPORTED AT TIME OF REPORT.
[2023-10-29 19:01] VITALS: BP_SYST 117
[2023-10-29 20:31] VITALS: BP 131/73; PULSE 96
[2023-10-29] MEDS ORDERED: Sennosides/Docusate 8.6-50 MG TAB PO SCH (21:00)
[2023-10-29] MEDS ORDERED: Sulfamethoxazole/Trimethoprim 800-160 MG TAB PO SCH (21:00)
--- NOTE | 2023-10-29 21:11 | NUR ---
Requested and given oxycodone for pain, see MAR. No other needs reported at this time.
[2023-10-30 05:54] VITALS: BP 115/64; PULSE 93; TEMP 98.1
--- NOTE | 2023-10-30 06:29 | NUR ---
PATIENT REQUESTING GABAPENTIN TO BE EVERY 6 HOURS PREVIOUSLY TAKEN "IT WAS TO ALREADY HAVE BEEN TAKEN CARE OF"
[2023-10-30] MEDS ORDERED: Gabapentin 400 MG CAP PO SCH (06:30)
--- NOTE | 2023-10-30 06:53 | NUR ---
Change of shift report given to day shift nurseIssac. Patient up in chair, exit alarm on, call light in reach.
[2023-10-30 07:07] VITALS: BP_SYST 115
[2023-10-30] MEDS ORDERED: Polyethylene Glycol 3350 17 GM PDS PO SCH (09:00)
--- NOTE | 2023-10-30 15:22 | NUR ---
Range Conservationist met with patient to check in before the weekend. Patient had no questions or concerns at this time. Patient remarked therapy "worked him hard" today.
[2023-10-30 17:13] VITALS: BP 117/69; PULSE 80; TEMP 98
[2023-10-30 19:00] VITALS: BP_SYST 117
--- NOTE | 2023-10-30 19:00 | NUR ---
Received change of shift report from day shift nurse.
[2023-10-30 20:14] VITALS: BP 135/72; PULSE 101
--- NOTE | 2023-10-30 20:15 | NUR ---
PATIENT OFFER SUPP THAT PATIENT HAS AGREED TO HAVE ADMINISTERED DUE TO STILL FEEING CONSTIPATED. SEE MAR
--- NOTE | 2023-10-30 22:12 | NUR ---
PATIENT REPORTED HAD BM, STAFF UNABLE TO VIEW STOOL DUE TO COVERED BY TOILET PAPER. PATIENT REPORTED "FEELING BETTER" REGARDING C/O CONSTIPATION. NO OTHER NEEDS REPORTED.
--- NOTE | 2023-10-31 03:41 | NUR ---
PATIENT RESTING IN BED WITH EYES CLOSED, BREATHING EVEN AND NONLABORED. EXIT ALARM ON, CALL LIGHT IN REACH. PATIENT DID NOT WAKE DURING NURSE ROUNDING.
[2023-10-31 05:41] VITALS: BP 144/74; PULSE 95; TEMP 97.3
--- NOTE | 2023-10-31 07:05 | NUR ---
Change of shift report given to day shift nurseEla.
[2023-10-31 07:07] VITALS: BP_SYST 144
--- NOTE | 2023-10-31 07:56 | NUR ---
Shift report received from night RN. No events reported overnight. Pt sitting up in bed eating breakfast independently. Denies the need for pain medication at this time. Miralax refused. Pt stating "I had a pretty good BM". Other needs denied at this time. Call light in reach. Bed alarm on.
--- NOTE | 2023-10-31 09:29 | NUR ---
Pt resting supine in bed after eating breakfast. R knee surgical dressing removed. Robbie CDI. Incision w/o redness or swelling. Pt wanting robbie to remain covered so they aren't tugged on by clothing/socks. Airstrip dressing placed over incision. Pt off unit for Group Therapy.
--- NOTE | 2023-10-31 10:33 | NUR ---
Pt back in room after Group Therapy. Pt supervised as he stood from w/c to pivot transfer to bed. R knee airstrip dressing CDI. Pt denies other needs. Call light in reach. Bed alarm on.
--- NOTE | 2023-10-31 11:57 | NUR ---
Pt resting supine in bed. Pt feels his R knee is more swollen today. Ice pack given & will continue to monitor. Pt denies the need for pain medication at this time. Other needs denied. Call light in reach. Bed alarm on.
--- NOTE | 2023-10-31 12:28 | NUR ---
Pt supervised as he stood from bed to transfer to recliner for lunch. Pt eating indepedently after set up help provided.
--- NOTE | 2023-10-31 15:04 | NUR ---
Pt sleeping supine in bed w/ even & unlabored resps. Call light in reach. Bed alarm on.
[2023-10-31 17:33] VITALS: BP 120/73; PULSE 93; TEMP 98.3
--- NOTE | 2023-10-31 18:11 | NUR ---
Pt sitting up in bed. Pt supervised as he stood from bed to FWW to ambulate to the bathroom. Pt continues to report swelling in R knee. New ice pack given.
--- NOTE | 2023-10-31 18:38 | NUR ---
RECEIVED CHANGE OF SHIFT REPORT FROM DAY SHIFT NURSE.
--- NOTE | 2023-10-31 18:48 | NUR ---
Patient requested and given pain med, see MAR for med given.
[2023-10-31 19:00] VITALS: BP_SYST 120
[2023-10-31 20:22] VITALS: BP 143/72; PULSE 106
--- NOTE | 2023-11-01 02:43 | NUR ---
PATIENT REQUESTED PAIN MEDS, SEE MAR FOR MED GIVEN. PATIENT VOICED "MY KNEE IS NOT GETTING BETTER"
[2023-11-01 05:33] VITALS: BP 124/71; PULSE 90; TEMP 97.6
--- NOTE | 2023-11-01 06:43 | NUR ---
Change of shift report given to day shift nurseEla.
[2023-11-01 06:54] VITALS: BP_SYST 124
--- NOTE | 2023-11-01 06:55 | NUR ---
Shift report received from night RN. No events reported overnight. Pt sitting up in bed ordering breakfast. Denies needs at this time. Call light in reach. Bed alarm on.
--- NOTE | 2023-11-01 07:28 | NUR ---
Pt sitting up in bed eating breakfast. Denies any needs. Call light in reach. Bed alarm on.
--- NOTE | 2023-11-01 09:33 | NUR ---
Pt resting supine in bed watching tv. Denies needs. Denies pain. Call light in reach. Bed alarm on.
--- NOTE | 2023-11-01 11:48 | NUR ---
Pt sitting up in bed watching tv. Denies pain. Denies any needs. Call light in reach. Bed alarm on.
--- NOTE | 2023-11-01 13:29 | NUR ---
Pt sleeping supine in bed w/ HOB slightly elevated. Resps even & unlabored. Call light in reach. Bed alarm on.
--- NOTE | 2023-11-01 17:27 | NUR ---
Pt sitting up in bed visiting w/ family. Denies needs. R knee dressing remains CDI. Ice pack given for swelling. Call light in reach. Bed alarm on.
[2023-11-01 17:39] VITALS: BP 104/57; PULSE 96; TEMP 98.4
--- NOTE | 2023-11-01 18:03 | NUR ---
Pt sitting up in bed watching tv. Pt rating pain level 6 or 7. Oxycodone given per PRN order for R knee pain. Other needs denied. Call light in reach. Bed alarm on.
[2023-11-01 19:00] VITALS: BP_SYST 104
--- NOTE | 2023-11-01 19:00 | NUR ---
RECEIVED CHANGE OF SHIFT REPORT FROM DAY SHIFT NURSE. PATIENT RESTING IN BED, CALL LIGHT IN REACH. NO NEEDS REPORTED AT TIME OF REPORT.
[2023-11-01 20:39] VITALS: BP 128/70; BP_SYST 125; PULSE 90
[2023-11-02 04:30] VITALS: BP 125/69; PULSE 90; TEMP 97.9
--- NOTE | 2023-11-02 06:47 | NUR ---
Change of shift report given to day shift nurseIssac. Patient resting in bed, exit alarm on, call light in reach.
[2023-11-02 07:00] VITALS: BP_SYST 125
[2023-11-02 07:32] LABS: BASO % 0.5 % (0.0-2.0); EOS # 0.4 K/mm3 (0.0-0.7); EOS % 5.2 % (0.0-4.0); GRAN # 4.5 K/mm3 (1.4-6.5); GRAN % 59.5 % (42.2-75.2); LYMPH % 26.2 % (20.0-51.0); MEAN CELL VOLUME 85 fl (80.0-100.0); MEAN CORPUSCULAR HGB CONC 35 g/dl (33.0-37.0); MEAN PLATELET VOLUME 9.8 fl (7.4-10.4); MONO # 0.6 K/mm3 (0.1-0.6); MONO % 7.9 % (1.7-9.3); PLATELET COUNT 216 K/mm3 (130-400); RED BLOOD COUNT 3.02 M/mm3 (4.20-5.60); REDCELL DISTRIBUTION WIDTH-CV 13.4 % (11.5-14.5)
[2023-11-02 07:37] LABS: HEMOGLOBIN 9.1 g/dl (13.5-18.0); MEAN CORPUSCULAR HEMOGLOBIN 30 pg (27-31)
[2023-11-02 07:38] LABS: HEMATOCRIT 25.8 % (42.0-52.0)
[2023-11-02 07:51] LABS: CALCIUM 8.6 mg/dL (8.4-10.2); CREATININE, serum 0.89 mg/dL (0.72-1.25); POTASSIUM 3.9 mEq/L (3.5-4.5)
--- NOTE | 2023-11-02 08:03 | NUR ---
PT RESTING IN BED WAITING FOR BREAKFAST. AM MEDS GIVEN ORDERED. REFUSING MIRALAX. [place] REPORTS LOOSE STOOLS. PT A/O X4. PAIN MEDS GIVEN
[2023-11-02] MEDS ORDERED: Cyclobenzaprine 10 MG TAB PO PRN (09:00)
--- NOTE | 2023-11-02 14:14 | NUR ---
LEEANNA called patient's daughter to discuss scheduling a family meeting for this Thursday. Daughter states she can attend family meeting on Thursday at 10:15 am. Attempted to meet with patient for discharge plan re[facility] Discharge plan: [facility]
--- NOTE | 2023-11-02 15:04 | NUR ---
Admission QIM scores were reviewed by the team. Code of 3 chosen for toileting hygiene was determined by team discussion to be the most usual performance for this patient during the discharge assessment period. Code of 88 chosen for toilet transfers was determined by team discussion to be the most usual performance for this patient during the discharge assessment period. Code of 3 chosen for shower/bathe self was determined by team discussion to be the most usual performance before interventions for this patient during the assessment period. Code of 3 chosen for lower body dressing was determined by team discussion to be the most usual performance before interventions for this patient during the assessment period. Code of 3 chosen for putting on/taking off footwear was determined by team discussion to be the most usual performance before interventions for this patient during the assessment period. Code of 6 chosen for sit to lying was determined by team discussion to be the most usual performance before interventions for this patient during the assessment period. Code of 6 chosen for lying to sitting side of bed was determined by team discussion to be the most usual performance before interventions for this patient during the assessment period. Code of 4 chosen for sit to stand was determined by team discussion to be the most usual performance for this patient during the discharge assessment period. Code of 4 chosen for walking 150 feet was determined by team discussion to be the most usual performance before interventions for this patient during the assessment period.--Mylene Rosen,
[2023-11-02 17:38] VITALS: BP 120/72; PULSE 95; TEMP 98.2
[2023-11-02] MEDS ORDERED: Atorvastatin 20 MG TAB PO SCH (18:00)
[2023-11-02 19:39] VITALS: BP_SYST 120
--- NOTE | 2023-11-02 20:00 | NUR ---
Patient assessed at this time, see shift assessment, robbie intact to right knee, no drainage noted, requested to take his night time pills at 2330, denies further needs, call light and personal items within reach, will continue to monitor.
[2023-11-03 05:30] VITALS: BP 126/69; PULSE 87; TEMP 98.3
[2023-11-03 07:33] VITALS: BP_SYST 126
--- NOTE | 2023-11-03 09:00 | NUR ---
PT RESTING IN CHAIR WITH PAIN 4/10 IN RIGHT KNEE. PRN PAIN MEDICATION PROVIDED PER EMAR. PT A/O X4, AMBULATES AORUND ROOM WITH 1 ASSIST AND WALKER. PT TOLERATING DEIT WELL. SILVIA TO RIGHT KNEE CLEAN AND INTACT, OPEN TO AIR. NO NEEDS AT THIS TIME, WILL CONTINUE TO MONITOR.
[2023-11-03 15:39] LABS: BASO # 0.1 K/mm3 (0.0-0.2); BASO % 0.7 % (0.0-2.0); EOS # 0.3 K/mm3 (0.0-0.7); EOS % 3.5 % (0.0-4.0); GRAN # 5.5 K/mm3 (1.4-6.5); HEMOGLOBIN 10.3 g/dl (13.5-18.0); LYMPH # 2.4 K/mm3 (1.2-3.4); LYMPH % 26.3 % (20.0-51.0); MEAN CELL VOLUME 85 fl (80.0-100.0); MEAN CORPUSCULAR HEMOGLOBIN 30 pg (27-31); MEAN CORPUSCULAR HGB CONC 35 g/dl (33.0-37.0); MEAN PLATELET VOLUME 9.6 fl (7.4-10.4); MONO # 0.6 K/mm3 (0.1-0.6); MONO % 6.9 % (1.7-9.3); PLATELET COUNT 286 K/mm3 (130-400); RED BLOOD COUNT 3.42 M/mm3 (4.20-5.60); REDCELL DISTRIBUTION WIDTH-CV 13.4 % (11.5-14.5)
[2023-11-03 15:43] LABS: HEMATOCRIT 29.1 % (42.0-52.0)
--- NOTE | 2023-11-03 16:05 | NUR ---
Customer Relations Assistant met with patient to discuss discharge planning. Patient stated that he doesn't have a PCP at this time and would like to establish with someone at [place]. Discussed assisting patient in getting referral for this group. Patient informed of family meeting tomorrow at 10:15 am. Discussed recommendation of HH services at discharge. Patient stated he doesn't want HH due to having a bed bug problem at home. He states that he and his landlady are treating the infestation. He reports that his landlady had HH and they refused to come out due to the bugs. Patient voiced willingness to go to OP therapy at discharge. He states he has transportation from his roommate and he also drives. Discharge plan: home with OP therapy
[2023-11-03 18:37] VITALS: BP 132/63; PULSE 91; TEMP 97.9
[2023-11-03 19:15] VITALS: BP_SYST 132
--- NOTE | 2023-11-03 19:37 | NUR ---
Patient reports pain to right knee, PS of 6/10, medicated with oxycodone, assessed at this time, see shift assessment, A/Ox4, denies further needs, call light and personal items within reach, will continue to monitor.
[2023-11-04 05:29] VITALS: BP 95/58; PULSE 82; TEMP 97.6
[2023-11-04 07:00] VITALS: BP_SYST 95
--- NOTE | 2023-11-04 08:18 | NUR ---
PT EATING AND DRINKING NO N.V, PT RESTING IN BED AFTER EATING BREAKFAST. PO PAIN MEDS NOT GIVEN AT THIS TIME. SILVIA INTACT TO RIGHT KNEE. LBKA FROM PREVIOUS , PT DENIES NEEDS. CAREPLAN REVIEWED.
--- NOTE | 2023-11-04 13:17 | NUR ---
The Interdisciplinary team discussed making the patient Modified Independent in his room during Huddle. His current Palomo Fall Score is moderate at 30 & Tinetti score was moderate at 21. He is currently using a r/walker for mobility & self care & demonstrates good safety. The team feels he is capable of being Modified Independent in his room at this time as he is aware of his deficits/limitations & cognitively able to problem solve his situations.--Mylene Rosen, PD
--- NOTE | 2023-11-04 14:22 | NUR ---
Industrial Technology Education Teacher attended team conference. mold worker attended family meeting right after team conference. Patient's daughter on speaker phone for meeting. Discussed patient being ready for discharge on Thursday, 11/05 to home with OP physical therapy. Discussed patient needing transfer bench for bathtub and toilet riser. SW met with patient to discuss discharge needs. He states he may have enough money to purchase one item but not both. SW attempted to call [facility] and [employer] to inquire about patient borrowing equipment, left message for return calls. Patient provided with contact numbers to follow up as well. Patient states either his daughter or his landlady will pick him up at discharge Discharge plan: Home with OP therapy
--- NOTE | 2023-11-04 14:27 | NUR ---
Received report from ОЛЬГА Davenport. Pt is laying in bed. A&Ox4. VSS. S1S2. Clear lung sounds. ABD is rounded, soft, non-tender. Palpable pulses in all extremities. Pt denies pain, n/v, headache, dizziness at this time. Call light in reach.
--- NOTE | 2023-11-04 16:48 | NUR ---
Pt laying in bed resting. Denies pain. Refused SCDs at this time. Call light in reach.
[2023-11-04 17:04] VITALS: BP 118/70; PULSE 89; TEMP 98
--- NOTE | 2023-11-04 18:58 | NUR ---
RECEIVED CHANGE OF SHIFT REPORT FROM DAY SHIFT NURSE. PATIENT RESTING IN BED, PATIENT UP INDEPENDENTLY IN ROOM WITH NO REPORTED CONCERNS OR NEEDS AT TIME OF REPORT. CALL LIGHT IN REACH.
[2023-11-04 19:10] VITALS: BP_SYST 118
[2023-11-04 21:37] VITALS: BP 120/69; PULSE 89
[2023-11-05] VITALS (7 sets, daily range): BP systolic 98–130; BP diastolic 58–67; PULSE 77–91; TEMP 97.7–98.1
--- NOTE | 2023-11-05 07:12 | NUR ---
Shift report received from night RN. No events reported overnight. Pt sleeping supine in bed w/ even & unlabored resps. Call light in reach. Bed alarm on.
--- NOTE | 2023-11-05 07:14 | NUR ---
CHANGE OF SHIFT REPORT GIVEN TO DAY SHIFT NURSEPARAM
--- NOTE | 2023-11-05 08:20 | NUR ---
Pt lying supine in bed after eating breakfast. Pt reporting mild R knee pain but is requesting a muscle relaxer. Flexeril given per PRN order.
--- NOTE | 2023-11-05 09:30 | NUR ---
Pt off unit w/ PT.
--- NOTE | 2023-11-05 11:13 | NUR ---
LEEANNA David was informed by [facility] Director Mylene that patient will be needing a transfer bench and toilet riser. LEEANNA Student contacted [facility] to check on DME availability. LEEANNA Student was informed that DME coordinator is out of office today. LEEANNA Student contacted [facility] to check on DME availability. LEEANNA Student was informed that they currently have a toilet riser but do not have a transfer bench. LEEANNA Mendez contacted [facility] on DME availability and was informed that they have both toilet risers and transfer bench available. LEEANNA Mendez will inform patient of this.
--- NOTE | 2023-11-05 11:47 | NUR ---
Pt lying supine in bed after returning from Group Therapy. Pt rating pain at 8/10. Oxycodone givn per PRN order. Other needs denied. Call light in reach. Pt on Mod I status in room.
--- NOTE | 2023-11-05 12:01 | NUR ---
LEEANNA Student met with patient at bedside to complete Medicare IM form. LEEANNA Student provided patient with a copy and placed original copy in patient's chart. LEEANNA Student also provided phone number and address for [facility] to metal pickling equipment operator toilet riser and transfer bench. Patient did not have any questions at this time.
--- NOTE | 2023-11-05 13:35 | NUR ---
Ice pack given for R knee swelling.
--- NOTE | 2023-11-05 15:57 | NUR ---
vegetable farm worker made APS report due to patient reporting bed bugs to previous social media marketer. INtake ID [id number]
--- NOTE | 2023-11-05 17:19 | NUR ---
Pt sitting up in recliner eating dinner. Denies the need for pain medication at this time. R knee incision w/ CDI robbie. Swelling remains to R knee. Pt encouraged to continue ice application.
--- NOTE | 2023-11-05 18:13 | NUR ---
Pt sitting up in bed watching tv. Denies any needs. Remains Mod I in room.
--- NOTE | 2023-11-05 19:00 | NUR ---
RECEIVED CHANGE OF SHIFT REPORT FROM DAY SHIFT NURSE.
--- NOTE | 2023-11-05 23:33 | NUR ---
PATIENT REPORTED HAD BM EARLIER TODAY.
[2023-11-06 05:26] VITALS: BP 120/70; BP 132/70; PULSE 58; PULSE 77; TEMP 97.6; TEMP 98.2
[2023-11-06 06:42] VITALS: BP_SYST 120
--- NOTE | 2023-11-06 06:47 | NUR ---
Pt sitting up in bed watching tv. Denies pain/discomfort. Pt scheduled for DC home today. Other needs denied. Call light in reach. Remains Mod I in room.
--- NOTE | 2023-11-06 06:52 | NUR ---
Shift report received from night RN. No events reported overnight.
--- NOTE | 2023-11-06 06:57 | NUR ---
Change of shift report given to day shift nurseEla.
[2023-11-06] MEDS ORDERED: FLEXERIL 1010 MG/TAB PO (10:07)
[2023-11-06] MEDS ORDERED: XARELTO10 MG PO (10:08)
[2023-11-06] MEDS ORDERED: ROXICODONE 55 MG/TAB PO (10:10)
--- NOTE | 2023-11-06 11:19 | NUR ---
SW Student faxed outpatient referral and discharge orders to [facility] (fax#[phone]).
--- NOTE | 2023-11-06 11:42 | NUR ---
DC summary reviewed w/ the pt. He is expecting his friend to arrive around 1330 for DC home. Pt had no further questions. Belongings were gathered by the pt & nursing staff. Pt requesting pain medication. Oxycodone given per PRN order.
--- NOTE | 2023-11-06 12:49 | NUR ---
Pt escorted off unit by wheelchair by SWINE NUTRITIONIST. Pt accompanied by his daughter. Pt left chargers x 2 in room. Attempted to call pt. Will call back.
--- NOTE | 2023-11-06 14:10 | NUR ---
Discharge QIM scores were reviewed by the team. Code of 6 chosen for putting on/taking off footwear was determined by team discussion to be the most usual performance for this patient during the discharge assessment period. Code of 6 chosen for walking 10 feet was determined by team discussion to be the most usual performance for this patient during the discharge assessment period. Code of 6 chosen for walking 150 feet was determined by team discussion to be the most usual performance for this patient during the discharge assessment period.--Mylene Rosen, PD
--- NOTE | 2023-11-06 16:09 | NUR ---
composite bond worker met with patient to discuss outpatient PT. Patient stated he would like [facility] as he has been there previously. SW contacted [facility] and scheduled for their earliest appointment which is Thursday at 10 am. SW notified patient whom expressed that instead of [facility] he was interested in [facility] [place] [facility]. SW contacted [facility] therapy whom expressed they would need the referral then they would schedule appointment with patient. SW faxed referral to [facility]. SW cancelled appointment with [facility]. SW received a call from [facility] regarding questions about what services he needs. LEEANNA explained patient need outpatient PT. [facility] asked about hospital stay. LEEANNA explained patient had surgery and had been hospitalized for 9 days in [facility]. SW explained patient is discharging today and requested to continue therapy with them. [facility] expressed they could accept patient and would contact him to schedule the appointment. Discharge plan: Home with OP PT
== END 2023-11-06 12:35 | disposition home or self-care (01) | DRG 561 ==
PROVIDERS: Physician Assistant; ADMIT Physical Medicine & Rehabilitation Sports Medicine
DX: Z47.1 Aftercare following joint replacement surgery (principal); I25.10 Atherosclerotic heart disease of native coronary artery without angina pectoris; E78.5 Hyperlipidemia, unspecified; I10 Essential (primary) hypertension; E11.40 Type 2 diabetes mellitus with diabetic neuropathy, unspecified; E66.9 Obesity, unspecified; M10.9 Gout, unspecified; K59.00 Constipation, unspecified; G47.33 Obstructive sleep apnea (adult) (pediatric); N40.0 Benign prostatic hyperplasia without lower urinary tract symptoms; Z79.84 Long term (current) use of oral hypoglycemic drugs; Z95.1 Presence of aortocoronary bypass graft; Z89.512 Acquired absence of left leg below knee; Z95.820 Peripheral vascular angioplasty status with implants and grafts; Z79.899 Other long term (current) drug therapy; Z96.653 Presence of artificial knee joint, bilateral; Z87.891 Personal history of nicotine dependence; Z89.421 Acquired absence of other right toe(s); Z68.34 Body mass index [BMI] 34.0-34.9, adult; D64.9 Anemia, unspecified